=== PATIENT | male | born 1940 | race Caucasian/White ===

== ENCOUNTER 2022-10-07 13:23 | Observation (INO) ==
[2022-10-07] MEDS ORDERED: Thiamine 100 MG/ML 2 ml VIAL 100 MG, Folic Acid IV 1 MG, Multiple Vitamin IV ADULT 10 M... IV ONE (15:30)
[2022-10-07 15:32] LABS: ABS Lymphocytes 0.5 10^3/uL (1.0-4.8); ABS Monocytes 0.9 10^3/uL (0.0-1.1); ABS Neutrophils 11.7 10^3/uL (1.5-7.6); Eosinophil % 0.1 %; Hematocrit 41.3 % (38-53); Hemoglobin 13.7 g/dL (13.2-16.3); Mean Corpuscular Hemoglobin 32.5 pg (27-33); Mean Corpuscular Hgb Conc 33.3 g/dL (31-36); Mean Corpuscular Volume 97.6 fL (80-97); Mean Platelet Volume 7.6 fL (7.5-11.2); Platelet Count 240 10^3/uL (150-450); Red Blood Count 4.23 10^6/uL (4.06-5.63); Red Cell Distribution Width 14.6 % (12-17); White Blood Count 13.2 10^3/uL (3.6-10.2)
[2022-10-07 15:53] LABS: High Sens Troponin Baseline 17 pg/mL (<20)
[2022-10-07 16:07] LABS: ALT 31 U/L (7-52); AST 42 U/L (13-39); Albumin 4.2 g/dL (3.2-5.2); Albumin/Globulin Ratio 1.4 (1-3); Alkaline Phosphatase 157 U/L (35-149); Anion Gap 9 mmol/L (2-16); Blood Urea Nitrogen 17 mg/dL (6-24); CO2 Carbon Dioxide 25 mmol/L (22-32); Calcium 9.4 mg/dL (8.6-10.3); Chloride 100 mmol/L (101-111); Creatine Kinase 1076 U/L (10-223); Creatinine, Serum 1.21 mg/dL (0.67-1.17); Globulin 2.9 g/dL (2-4); Glucose 89 mg/dL (70-100); Potassium 4.1 mmol/L (3.5-5.0); Sodium 134 mmol/L (135-145); Total Protein 7.1 g/dL (6.4-8.9); eGFR CKD-EPI 60.5 (>60)
[2022-10-07] MEDS ORDERED: Iohexol 350 (CONTRAST) 500 ML MDV IV ONE (16:27)
[2022-10-07 16:30] LABS: Alcohol, S < 13 mg/dL (<13)
[2022-10-07 17:24] LABS: High Sensitivity Troponin 1 Hr 18 pg/mL (<20)
[2022-10-07 20:00] LABS: Urine Appearance Clear; Urine Bilirubin Negative (Negative); Urine Blood 1+ (Negative); Urine Color Yellow; Urine Glucose Negative (Negative); Urine Ketones Trace (Negative); Urine Nitrite Negative (Negative); Urine Protein Negative (Negative); Urine Specific Gravity 1.046 (1.002-1.030); Urine Urobilinogen Negative (Negative)
[2022-10-07 20:03] LABS: Urine Bacteria Absent (Absent); Urine Red Blood Cell Trace(0-2/hpf) (Absent); Urine Squamous Epithelial Cell Present (Absent); Urine White Blood Cell Absent (Absent)
[2022-10-07] MEDS ORDERED: levETIRAcetam 1000MG IVPREMIX 1,000 MG/100 ML BAG IVPB ONE (20:14)
[2022-10-07] MEDS ORDERED: Ondansetron 4 mg VIAL 2 MG/ML 2 ml VIAL IV PRN (20:15)
[2022-10-07] MEDS ORDERED: Thiamine 100 MG/ML 2 ml VIAL (200 mg) IM ONE (20:16)
[2022-10-08] MEDS: Enoxaparin 40 MG/0.4 ML SYR SUBCUT SCH ×2 (00:02→20:06)
[2022-10-08 06:48] LABS: Calcium 8.7 mg/dL (8.6-10.3); Creatinine, Serum 1.12 mg/dL (0.67-1.17); Potassium 3.6 mmol/L (3.5-5.0); eGFR CKD-EPI 66.4 (>60)
[2022-10-08] MEDS: Multivitamins/Minerals TAB PO SCH (10:18)
[2022-10-09 07:15] LABS: ABS Basophils 0.1 10^3/uL (0.0-0.1); ABS Eosinophils 0.1 10^3/uL (0.0-0.5); ABS Lymphocytes 1.1 10^3/uL (1.0-4.8); ABS Neutrophils 5.2 10^3/uL (1.5-7.6); Eosinophil % 1.9 %; Hematocrit 34.5 % (38-53); Hemoglobin 12.1 g/dL (13.2-16.3); Lymphocyte % 14.5 %; Mean Corpuscular Hemoglobin 33.9 pg (27-33); Mean Corpuscular Hgb Conc 35.1 g/dL (31-36); Mean Corpuscular Volume 96.8 fL (80-97); Mean Platelet Volume 7.5 fL (7.5-11.2); Platelet Count 220 10^3/uL (150-450); Red Blood Count 3.57 10^6/uL (4.06-5.63); Red Cell Distribution Width 14.3 % (12-17); White Blood Count 7.4 10^3/uL (3.6-10.2)
[2022-10-09 07:34] LABS: Calcium 8.8 mg/dL (8.6-10.3); Creatinine, Serum 1.09 mg/dL (0.67-1.17); Potassium 3.7 mmol/L (3.5-5.0); eGFR CKD-EPI 68.6 (>60)
[2022-10-09] MEDS: Multivitamins/Minerals TAB PO SCH (08:43)
[2022-10-09] MEDS: Enoxaparin 40 MG/0.4 ML SYR SUBCUT SCH (20:01)
[2022-10-10 06:40] LABS: C Reactive Protein 52.14 mg/L (<8.01); Calcium 8.8 mg/dL (8.6-10.3); Creatinine, Serum 0.99 mg/dL (0.67-1.17); Magnesium 1.6 mg/dL (1.9-2.7); Potassium 3.5 mmol/L (3.5-5.0)
[2022-10-10] MEDS: Magnesium Sulf 4 GM/100 ML IV 4,000 MG/100 ML BAG IVPB ONE ×2 (08:25→08:31)
[2022-10-10] MEDS: Multivitamins/Minerals TAB PO SCH (08:28)
[2022-10-10 14:04] VITALS: BP 129/81
== END 2022-10-10 15:10 | disposition home or self-care (01) ==
LOC: EDHOLD 13:23 → ED 13:23 → SUATTDRO 20:15 → MED 22:44
PROVIDERS: ADMIT Student in an Organized Health Care Education/Training Program; ATTEND Internal Medicine